=== PATIENT | female | born 1975 | race Caucasian/White ===

== ENCOUNTER 2019-11-17 09:36 | Day surgery (SDC) | payer OTHER ==
[~2019-11-17] VITALS: Ht 154.9 cm; Wt 77.1 kg
[~2019-11-17 09:36] MED LIST: ULTRAM50 MG PO
[2019-11-17 10:11] LABS: HEMATOCRIT 43.1 % (36.0-48.0); HEMOGLOBIN 14.9 g/dL (12-16); MCH 31.4 pg (26.0-34.0); MCHC 34.6 g/dL (31.0-37.0); MCV 90.9 fL (80.0-100.0); MEAN PLATELET VOLUME 9.9 fL (7.4-10.4); RBC 4.74 10x6/uL (4.00-5.40); RDW 12.8 % (11.5-14.5); WBC 6.1 10x3/uL (4.8-10.8)
[2019-11-17 10:55] VITALS: BP 137/86; Ht 154.9 cm; Wt 77.1 kg
[2019-11-17] MEDS ORDERED: VISTARIL50 MG PO (16:21)
[2019-11-17] MEDS ORDERED: DILAUDID4 MG PO (16:21)
[2019-11-17] MEDS ORDERED: KEFLEX500 MG PO (16:22)
[2019-11-17] MEDS ORDERED: TORADOL10 MG PO (16:22)
--- NOTE | 2019-11-17 19:20 | NUR ---
PATIENT TRANSFERS TO BED-SIDE COMMODE AND VOIDS IN TOILET WITHOUT DIFFICULTY. WALKS WITH WALKER WITH TOUCH-DOWN WEIGHT-BEARING ON LLE, WITHOUT UNSTEADINESS OR DIZZINESS. PATIENT FEELS LIKE NEEDS TO LIE DOWN AND REST FOR A BIT BEFORE GOING HOME, "I STILL FEEL WEAK BUT I FEEL LIKE I CAN DO IT."
--- NOTE | 2019-11-17 19:50 | NUR ---
PATIENT AMBULATING SLOWLY WITH WALKER IN ROOM. PATIENT HAS CRUTCHES HERE BUT STATES HAS A WALKER AT HOME, THIS NURSE RECOMMENDS PATIENT USE WALKER FOR MORE STABILITY AND USE WHATEVER SHE FEELS MOST STABLE AND COMFORTABLE WITH AT HOME. DISCHARGE INSTRUCTIONS REVIEWED WITH PATIENT AND SPOUSE. DISCHARGED HOME VIA WHEELCHAIR TO PRIVATE VEHICLE WITH SPOUSE
--- NOTE | 2019-11-19 07:28 | OP ---
PATIENT NAME: ANTHONY VELASQUEZ MEDICAL RECORD: [id number] :77 LOCATION:[facility] ADMISSION DATE: SURGEON: BRAEDEN OTT DO DATE OF OPERATION: 11/17/2019 PROCEDURE PERFORMED: Left knee arthroscopy with ACL reconstruction with quad tendon autograft, partial lateral meniscectomy and medial meniscal repair. PREOPERATIVE DIAGNOSIS: Left knee anterior cruciate ligament rupture tear, lateral meniscal tear, and medial meniscal tear. POSTOPERATIVE DIAGNOSIS: Left knee anterior cruciate ligament rupture tear, lateral meniscal tear, and medial meniscal tear. INDICATIONS: Ms. Velasquez is a 44-year-old female who fell and twisted her knee couple of weeks ago. She was seen in my clinic, MRI was done and the findings were seen on MRI. She was quite tender and painful. She wanted something done surgically. I informed her we could leave and she had rehab it, but we would have to do something with the menisci and she wanted something done. She also wanted an ACL done. I informed her that she is at risk for infection, bleeding, damage to nerves and vessels, retear, failure of the graft, failure of the implants, blood clots, and even and continued knee pain, loss of range of motion and she is okay with that and signed a consent. SURGEON: Braeden Ott DO SERGER: Pawel Smith, certified surgical office manager executive assistant. He assisted with prepping the graft as well as passing instruments and closing. The patient received a block by anesthesia in the preoperative area, was given 2 grams of Ancef, was taken to the operative suite and laid in the supine position, given general anesthetic and LMA was placed. Then, the left lower extremity was prepped and draped in sterile fashion. The right leg was put in the Well-Leg sarkar prior to this. Once the left leg was prepped and draped in sterile fashion. A timeout was performed and everyone was in agreeance with the correct side, site, patient and procedure. We then started by exsanguinating the left lower extremity with Esmarch and tourniquet was inflated to 350 mmHg and it was up for 103 minutes. I then took the incision right over the quad tendon and went down to the quad tendon and harvested a graft, then go through the capsule once and sutured it with #1 Vicryl to close the hole. Once the tendon graft was removed, Pawel Smith started to prepare on the back table and then started the knees arthroscopy portion of it establishing the lateral portal with an 11-blade scalpel. Trocar was entered into the knee. There was quite a bit of inflammation in the knee and some hematoma. This was irrigated out. The suprapatellar pouch as well as the lateral gutter and medial gutter was clean. I then established a medial portal with an 18-gauge spinal needle and blade scalpel then probed the medial meniscus. A tear was seen in the middle of the posterior horn of the medial meniscus. The notch was then emptied. There was no ACL there. I did debride what was left of it and then the lateral compartment was entered as we [id number] and there was a tear in the white zone of the meniscus in the posterior horn. This was trimmed back and with a biter and a shaver. I then addressed the medial meniscus and switched portal sites with the viewing going through medial and brought the Fast-Fix into the lateral and did a meniscal repair on the medial side and cut this. I did a nice repair on it, held very well. I then drilled the femoral tunnel from outside end and passed a nitinol wire. This was fished out and brought out through the OPERATIVE REPORT [id number] ANTHONY VELASQUEZ lateral portal. I then did the tibial tunnel and once it was done in the appropriate position, we did then reamed up through the tibia. I then passed the graft after we did the nitinol wire through that tibial tunnel, passed the graft through there and cinched it up into the femur as the button flipped on the lateral femur and then tensioned the graft with a TunneLoc peak tibial fixation and held tension and then cycled the knee 30 times and then tapped the TunneLoc into place and then cinched up on the femur some more if there was any laxity noted at that time, there was not, there was a very tight graft in the notch. This was probed and then an anterior drawer and a Darell's were done and had good endpoints and little to no laxity. The tourniquet was then let down. The sites were irrigated. The quad tendon graft site was closed with a 2-0 Vicryl in inverted interrupted inverted fashion and the ZipLine placed on it. The portal sites were closed with 4-0 Monocryl in an inverted interrupted fashion and the tibial tunnel site was closed with 2-0 Vicryl in interrupted fashion and 4-0 Monocryl running on the skin. She was then dressed with Adaptic, 4 x 4s, ABD, Webril, Catrachito wrap and GAY hose stocking up to the knee and was placed in a hinged knee brace. She was awakened and taken to recovery in stable condition. BLOOD LOSS: Approximately 50 mL. COMPLICATIONS: None. TRANSINT:[id number] Voice Confirmation ID: [id number] DOCUMENT ID: [id number] BRAEDEN OTT DO at 0728 CC: [id number] DICTATION DATE: 11/17/19 1637 BUNG REMOVER: 11/17/196 [facility] 11/17/19 [address] [place] [address]
== END 2019-11-17 19:50 | disposition home or self-care (01) ==
LOC: D.OPS 09:36 → D.PAN 12:15 → D.OPS 12:15 → D.PAN 17:00 → D.OPS 17:00
PROVIDERS: Anesthesiology; ATTEND Orthopaedic Surgery
DX: S83.512A Sprain of anterior cruciate ligament of left knee, initial encounter (principal); S83.282A Other tear of lateral meniscus, current injury, left knee, initial encounter; S83.242A Other tear of medial meniscus, current injury, left knee, initial encounter; W19.XXXA Unspecified fall, initial encounter; Y93.9 Activity, unspecified; Y92.9 Unspecified place or not applicable

== ENCOUNTER → 2019-12-25 15:41 | Outpatient (CLI) | payer OTHER ==
[2019-11-17 10:55] VITALS: BMI 32.2
[~2019-12-25 15:41] MED LIST changes: +DILAUDID4 MG PO; +KEFLEX500 MG PO; +TORADOL10 MG PO; +VISTARIL50 MG PO
== END | disposition home or self-care (01) ==
LOC: D.US 15:41
PROVIDERS: ATTEND Orthopaedic Surgery
DX: M79.605 Pain in left leg (principal)

== ENCOUNTER → 2020-04-12 10:54 | Outpatient (CLI) | payer OTHER ==
[2019-11-17 10:55] VITALS: BMI 32.2
== END | disposition home or self-care (01) ==
LOC: D.MRI 10:54
PROVIDERS: ATTEND Nurse Practitioner Family
DX: S83.242A Other tear of medial meniscus, current injury, left knee, initial encounter (principal)

== ENCOUNTER 2020-05-10 07:25 | Day surgery (SDC) | payer OTHER ==
[2020-05-08 09:52] LABS: HEMOGLOBIN 15.5 g/dL (12-16); MCH 30.9 pg (26.0-34.0); MCHC 33.7 g/dL (31.0-37.0); MCV 91.8 fL (80.0-100.0); MEAN PLATELET VOLUME 10.5 fL (7.4-10.4); RBC 5.01 10x6/uL (4.00-5.40); RDW 13.5 % (11.5-14.5)
[~2020-05-10] VITALS: Ht 154.9 cm; Wt 77.1 kg
[2020-05-10 08:58] VITALS: BP 142/87; Ht 154.9 cm; Wt 77.1 kg
--- NOTE | 2020-05-10 12:46 | NUR ---
1240 IV REMOVED AND ASSISTED UP TO BATHROOM VOIDED. WALKING WITH WALKER. INSTRUCTIONS GIVEN
--- NOTE | 2020-05-10 19:06 | NUR ---
1110 #2 IV BAG STARTED. PT SEDATED AND HAVING A HARD TIME KEEEPING EYES OPEN. STATED SHE SLEPT LAST NIGHT AND SHE IS SLOW TO AWAKEN. PT WEANED OFF OF O2. 1240 IV REMOVED AND PRESSURE HELD. INSTRUCTIONS GIVE TO . 1240 ASSISTED TO BATHROOM MORE AWAKE BUT DROWSEY.1300 DISCHARGED HOME
--- NOTE | 2020-05-11 07:53 | OP ---
PATIENT NAME: ANTHONY VELASQUEZ MEDICAL RECORD: [id number] :77 LOCATION:[facility] ADMISSION DATE: SURGEON: BRAEDEN OTT DO DATE OF OPERATION: 05/10/2020 PROCEDURE PERFORMED: Left knee arthroscopy with partial medial meniscectomy. PREOPERATIVE DIAGNOSIS: Left knee medial meniscal tear. POSTOPERATIVE DIAGNOSIS: Left knee medial meniscal tear. INDICATIONS: Ms. Velasquez is a 44-year-old female who underwent a left ACL reconstruction approximately 6 months ago, I believe with medial meniscal repair. She did well with that and then started having meniscal symptoms, popping, catching, locking, and pain over the medial aspect of the knee. She got an MRI, which indeed showed a meniscal tear just at the peripheral site where I had repaired it. I informed her of the risks including infection, bleeding, continued pain, retear of the meniscus, blood clots, bleeding, and even and she signed the consent. SURGEON: Braeden Ott DO DESCRIPTION OF SURGERY: The patient was taken to the operative suite, laid in supine position, given general anesthetic and LMA was placed. She was given 2 grams Ancef preoperatively. The left lower extremity was prepped and draped in sterile fashion. Timeout was performed, everyone was the correct side, site, patient, and procedure. I then began by establishing the lateral portal with an 11-blade scalpel. Trocar was then entered into the joint. Once trocar was entered into the joint, I brought in the camera and inspected the suprapatellar pouch, which was quite inflamed as well as the medial and lateral gutters. I went to the medial gutter and then flexed the knee established medial portal with 18-gauge spinal needle and 11-blade scalpel brought in the trocar and then a probe. I then made a valgus stress on the knee to open up the medial side and saw the medial meniscal tear. It was indeed at the most peripheral part of the medial meniscus at the middle portion right by the repair site. I then inspected the rest, I did not see a tear anywhere else and trimmed out the tear with a bitter and shaver. Once this to a stable point, I then inspected the ACL was in good repair as well as the lateral meniscus. After we performed the knee, the patellofemoral joint was also in good repair. All of the cartilage was in good shape as well. I then turned the suction on the water off and removed excess fluid from the knee. This portal site was then closed by Pawel Smith, certified surgical captain's assistant with a 4-0 Monocryl in inverted interrupted fashion and Steri-Strip Adaptic, 4 x 4s, ABD, Webril, Catrachito wrap, GAY hose stockings were placed on the patient. She was awakened and taken to recovery in stable condition. BLOOD LOSS: Minimal. COMPLICATION: None. TRANSINT:[id number] Voice Confirmation ID: [id number] DOCUMENT ID: [id number] OPERATIVE REPORT [id number] ANTHONY VELASQUEZ MICHAEL D, DO at 0753 CC: [id number] DICTATION DATE: 05/10/20 1341 SITE LEAD: 05/10/20 [facility] 05/10/20 [facility] [address] [place] [address]
== END 2020-05-10 13:00 | disposition home or self-care (01) ==
LOC: D.OPS 07:25 → D.PAN 11:45 → D.OPS 13:00
PROVIDERS: ATTEND Orthopaedic Surgery
DX: S83.242S Other tear of medial meniscus, current injury, left knee, sequela (principal); X58.XXXS Exposure to other specified factors, sequela; M25.562 Pain in left knee